=== PATIENT | male | born 1950 | race Caucasian/White ===

== ENCOUNTER 2017-01-09 14:05 | Observation (INO) | payer MEDICARE, OTHER ==
[~2017-01-09] VITALS: Ht 175.3 cm; Wt 87.1 kg
[~2017-01-09 14:05] MED LIST: ASPIRIN EC81 MG PO; BRILINTA90 MG PO; ELIQUIS2.5 MG PO; NITROSTAT0.4 MG PO; PROTONIX40 MG PO; SYNTHROID137 MCG PO; TOPROL XL 50 MG50 MG PO; ZESTRIL10 MG PO; ZOCOR40 MG PO
[2017-01-09 15:21] LABS: HEMOGLOBIN 14.2 gm/dl (14.0-17.5); RED BLOOD COUNT 4.71 M/UL (4.20-5.50); WHITE BLOOD COUNT 5.8 K/UL (4.5-11.0)
[2017-01-09 15:49] LABS: BUN/CREATININE RATIO 16 (0-10)
[2017-01-09] MEDS ORDERED: ISOSORBIDE MONO30 MG PO (22:24)
[2017-01-09] MEDS ORDERED: XALATAN2.5 ML OP (22:26)
[2017-01-09] MEDS ORDERED: NITROSTAT 0.40.4 MG SL (22:28)
[2017-01-09 22:44] LABS: BUN/CREATININE RATIO 16 (0-10)
[2017-01-10] MEDS ORDERED: LISINOPRIL10 MG PO (00:05)
[2017-01-10 03:37] LABS: BUN/CREATININE RATIO 17 (0-10)
[2017-01-10] MEDS ORDERED: ELIQUIS 5 MG TAB5 MG PO (13:41)
[2017-01-10] MEDS ORDERED: RANEXA1000 MG PO (14:15)
== END 2017-01-10 15:10 | disposition home or self-care (01) ==
LOC: ER1 14:05 → ZEROF 16:30 → MED SURG 4 20:46
PROVIDERS: Emergency Medicine; ADMIT Family Medicine
DX: R07.9 Chest pain, unspecified (principal); I25.10 Atherosclerotic heart disease of native coronary artery without angina pectoris; I11.0 Hypertensive heart disease with heart failure; I50.22 Chronic systolic (congestive) heart failure; I25.5 Ischemic cardiomyopathy; E78.5 Hyperlipidemia, unspecified; M19.90 Unspecified osteoarthritis, unspecified site; I48.0 Paroxysmal atrial fibrillation; I25.2 Old myocardial infarction; E07.9 Disorder of thyroid, unspecified; Z95.1 Presence of aortocoronary bypass graft; Z95.0 Presence of cardiac pacemaker; Z95.5 Presence of coronary angioplasty implant and graft; Z79.82 Long term (current) use of aspirin; Z79.01 Long term (current) use of anticoagulants; Z79.899 Other long term (current) drug therapy; Z87.891 Personal history of nicotine dependence
CPT/HCPCS: ECHO; 36415; 71010; 78452; 80048; 80053; 80061; 82550; 82553; 84484; 85025; 93005; 93017; 93306; 99285; A9502; G0378; J2785